=== PATIENT | female | born 1965 | race Two or more races ===

== ENCOUNTER 2016-11-25 01:21 | Emergency (ER) | payer OTHER ==
--- NOTE | 2016-11-25 01:48 | PDOC ---
History of Present Illness - General History Source: Patient Exam Limitations: No Limitations - History of Present Illness Initial Comments: 11/25/16 01:56 The patient is a 51 year old female with significant past medical history of jung parkinson syndrome and hyperlipidemia who presents to the ED with 3 days of generalized malaise and sore throat. Patient describes her sore throat as a burning sensation and states she has difficulty swallowing. She also has complaints of sinus pressure. Patient took a cough and cold remedy with no improvement. The patient denies fever, chills, cough, SOB, chest pain, and palpitations. The patient denies abdominal pain, nausea, vomiting, and diarrhea. Allergies: amoxicillin trihydrate, cephalexin monohydrate, codeine, doxycycline calcium, doxycycline hyclate, doxycycline monohydrate, meloxicam, morphine, moxifloxacin HCl, potassium clavulanate, tinidazole Social History: No alcohol, tobacco, or drug use reported. Past Surgical History: cardiac ablation PCP: Dr. Marylu Galvez <Elena Lester - Last Filed: 11/25/16 04:26> - General History Source: Patient <Rayray Boswell - Last Filed: 11/25/16 04:31> - General Chief Complaint: Sore Throat Stated Complaint: DIFFICULTY SWALLOWING Time Seen by Provider: 11/25/16 01:44 Past History <Elena Lester - Last Filed: 11/25/16 04:26> - Past Medical History Anemia: Yes Cardiac Disorders: Yes (QUINONES PARKINSON SYNDROME) GI Disorders: Yes (REFLUX) Hypercholesterolemia: Yes Suicide Attempt (Hx): No - Surgical History Cardiac Surgery: Yes (ABLATION) - Immunization History Immunization Up to Date: Yes - Psycho/Social/Smoking Cessation Hx Anxiety: No Suicidal Ideation: No Smoking Status: No Smoking History: Never smoked Have you smoked in the past 12 months: No Number of Cigarettes Smoked Daily: 0 If you are a former smoker, when did you quit?: 30YRS AGO Hx Alcohol Use: No Drug/Substance Use Hx: No Substance Use Type: None Hx Substance Use Treatment: No <Rayray Boswell - Last Filed: 11/25/16 04:31> - Past Medical History Allergies/Adverse Reactions: Allergies Allergy/AdvReac Type Severity Reaction Status Date / Time amoxicillin trihydrate Allergy blisters Verified 11/25/16 01:47 [From Augmentin] cephalexin monohydrate Allergy Rash Verified 11/25/16 01:47 [From Keflex] codeine [Codeine] Allergy Itching Verified 11/25/16 01:47 doxycycline calcium Allergy Rash Verified 11/25/16 01:47 [From Vibramycin] doxycycline hyclate Allergy Rash Verified 11/25/16 01:47 [From Vibramycin] doxycycline monohydrate Allergy Rash Verified 11/25/16 01:47 [From Vibramycin] meloxicam Allergy blisters Verified 11/25/16 01:47 morphine Allergy blisters Verified 11/25/16 01:47 moxifloxacin HCl Allergy Rash Verified 11/25/16 01:47 [From Avelox] potassium clavulanate Allergy blisters Verified 11/25/16 01:47 [From Augmentin] tinidazole [From Tindamax] Allergy Rash Verified 11/25/16 01:47 Home Medications: Ambulatory Orders Alprazolam [Xanax] 0.5 mg PO PRN tablet 07/25/13 Codeine/Butalbit/Acetamin/Caff [Fioricet-Cod 84-62-270-40 Cap] 1 each PO PRN capsule 07/25/13 Ezetimibe [Zetia] 10 mg PO DAILY tablet 07/25/13 Metoprolol "Xl" (Sustain Act) [Toprol Xl] 25 mg PO DAILY 07/25/13 Metoprolol "Xl" (Sustain Act) [Toprol Xl] 50 mg PO DAILY 07/25/13 Ranitidine HCl [Zantac 75] 150 mg PO BID tablet 07/25/13 Relifen 500 mg PO BID 07/25/13 Simvastatin [Zocor] 40 mg PO DAILY tablet 07/25/13 Zolpidem Tartrate [Ambien] 10 mg PO HS tablet 07/25/13 Acetaminophen/Caffeine/Butalb [Fioricet -] 0.5 tab PO DAILY PRN 11/21/14 Baclofen 20 mg PO BID 11/21/14 Ezetimibe [Zetia] 10 mg PO HS 11/21/14 Gabapentin [Neurontin] 800 mg PO Q8H 11/21/14 Metoprolol Succinate [Toprol Xl] 75 mg PO DAILY 11/21/14 Modafinil [Provigil] 200 mg PO DAILY 11/21/14 Pentosan Polysulfate Sodium [Elmiron] 200 mg PO BID 11/21/14 Ranitidine HCl [Zantac] 150 mg PO BID 11/21/14 Simvastatin [Zocor -] 40 mg PO HS 11/21/14 Zolpidem Tartrate [Ambien] 10 mg PO HS PRN 11/21/14 Pantoprazole Sodium [Protonix -] 20 mg PO DAILY 02/26/15 Teriflunomide [Aubagio] 7 mg PO DAILY tablet 02/26/15 Diclofenac Sodium [Voltaren] 50 mg PO PRN PRN 03/13/15 Oxycodone HCl/Acetaminophen [Percocet 5-325 mg Tablet] 1 - 2 tab PO Q6H #20 tablet MDD 4 01/29/16 Review of Systems - Review of Systems Able to Perform ROS?: Yes Comments:: 11/25/16 01:56 CONSTITUTIONAL: +generalized malaise Absent: fever, no chills, no fatigue EYES: Absent: visual changes ENT: +sore throat, difficulty swallowing, sinus pressure Absent: ear pain CARDIOVASCULAR: Absent: chest pain, no palpitations RESPIRATORY: Absent: cough, no SOB GI: Absent: abdominal pain, no nausea, no vomiting, no constipation, no diarrhea GENITOURINARY: Absent: dysuria, no frequency, no hematuria MUSKULOSKELETAL: Absent: back pain, no arthralgia, no myalgia SKIN: Absent: rash NEURO: Absent: headache <Elena Lester - Last Filed: 11/25/16 04:26> *Physical Exam - Vital Signs Last Vital Signs Temp Pulse Resp BP Pulse Ox 98.4 F 78 18 98/67 99 11/25/16 01:47 11/25/16 01:47 11/25/16 01:47 11/25/16 01:47 11/25/16 01:47 - Physical Exam Comments: 11/25/16 01:57 GENERAL: Well-appearing, well-nourished. Mild distress. HEENT: Normocephalic, atraumatic. PERRL, EOM intact. CARDIOVASCULAR: Normal S1, S2. Regular rate and rhythm. PULMONARY: Clear to auscultation bilaterally. ABDOMEN: Soft, non-distended, non-tender. EXTREMITIES: Normal ROM in all four extremities. No gross deformities. SKIN: Warm, dry. No rash NEUROLOGICAL: No focal neurological deficits. <Elena Lester - Last Filed: 11/25/16 04:26> ED Treatment Course - LABORATORY CBC & Chemistry Diagram: 11/25/16 01:57 11/25/16 01:57 - RADIOLOGY Radiograph Interpretation: 11/25/16 04:27 EXAM: X-ray AP and lateral view of the neck Reviewed by Imaging instrumentation tech: FINDINGS: The cervical airways patent. Prevertebral soft tissues are normal. Cervical airways patent. Epiglottis is normal. No acute abnormalities. <Elena Lester - Last Filed: 11/25/16 04:26> - LABORATORY CBC & Chemistry Diagram: 11/25/16 01:57 11/25/16 01:57 <Rayray Boswell - Last Filed: 11/25/16 04:31> Medical Decision Making - Medical Decision Making 11/25/16 04:28 Dr. Boswell: The scribe's documentation has been prepared under my direction and personally reviewed by me in its entirery. I confirm that the note above accurately reflects all work, treatment, procedures, and medical decision making performed by me. 11/25/16 04:29 All studies return to be stable. Pt will follow up with ENT as soon as possible. Pt give single dose of Prednisone 40mg. Advised to return if any problems <Rayray Boswell - Last Filed: 11/25/16 04:31> *DC/Admit/Observation/Transfer - Attestations Scribe Attestion: 11/25/16 01:57 Documentation prepared by Elena Lester, acting as medical associate for Rayray Boswell MD <Elena Lester - Last Filed: 11/25/16 04:26> - Discharge Dispostion Admit: No <Rayray Boswell - Last Filed: 11/25/16 04:31> Diagnosis at time of Disposition: Sore throat - Discharge Dispostion Disposition: HOME Condition at time of disposition: Stable - Referrals Referrals: Marylu Galvez MD [Primary Care Provider] - Donald Noel MD [Staff Physician] - - Patient Instructions Printed Discharge Instructions: Sore Throat Additional Instructions: Please follow up with ENT later on today. Retun if any problems
[2016-11-25 01:49] VITALS: BP 98/67; PULSE 78; TEMP 98.4; BMI 20.2
[2016-11-25 02:05] LABS: MCH 26.3 pg (25.7-33.7); MCHC 31.9 g/dl (32.0-36.0); MEAN CELL VOLUME 82.3 fl (80-96); MEAN PLT VOLUME 10.2 fl (7.5-11.1); PLATELET COUNT 204 K/MM3 (134-434); RDW 13.6 % (11.6-15.6); WHITE BLOOD COUNT 4.2 K/mm3 (4.0-10.0)
[2016-11-25 03:15] LABS: ANISOCYTOSIS 1+; PLATELET COMMENT2 NO CLOTTING DETECTED; PLATELET ESTIMATE ADEQUATE (NORMAL)
[2016-11-25 03:38] LABS: CALCIUM 9.1 mg/dL (8.5-10.1); CREATININE 0.5 mg/dL (0.55-1.02)
[2016-11-25] MEDS ORDERED: LIDOCAINE VISCOUS 2% ORAL/TOP 20 ML UNIT-DOSE CUP MM ONE (03:42)
[2016-11-25] MEDS ORDERED: predniSONE 20 MG TABLET (UD) PO ONE (04:27)
[2016-11-25] MEDS ORDERED: predniSONE 20 MG TABLET (UD) ONE (04:30)
== END 2016-11-25 04:44 | disposition home or self-care (01) ==
LOC: JER 01:21
DX: J02.9 Acute pharyngitis, unspecified (principal); E78.00 Pure hypercholesterolemia, unspecified; D64.9 Anemia, unspecified; I45.6 Pre-excitation syndrome
CPT/HCPCS: 36415; 70360-TC; 80048; 85025; 87804; 99281-25

== ENCOUNTER 2017-05-22 00:26 | Emergency (ER) | payer OTHER ==
[2017-05-22 00:35] VITALS: BP 130/87; PULSE 76; TEMP 98.1; BMI 20.4
--- NOTE | 2017-05-22 03:01 | PDOC ---
History of Present Illness - General Chief Complaint: Rash Stated Complaint: PCP SENT - SHINGLES Time Seen by Provider: 05/22/17 02:48 History Source: Patient Exam Limitations: No Limitations - History of Present Illness Initial Comments: 05/22/17 02:57 52yo Female patient w/ PmHx: MS, WPW, HTN, HLD, Anemia, Partial Hysterectomy presents to ED c/o rash on neck. Patient states recently diagnosed with shingles. She called her PCP and was Rx: Valtrex. Patient reports taking medication for 5 days, then rash on neck presented. Associated h/a and flu-like symptoms. She denies any other complaints at this time. Timing/Duration: reports: week Severity: Yes: moderate Location: reports: other (Neck) Respiratory Risk Factors: denies: no cause identified, exposure to illness, exposure to allergen, foods, insect bite, insect sting, medications, pollen, soaps, other Modifying Factors: worse with: antihistamine, calamine lotion, prednisone, scratching, topical steriods, other Associated Symptoms: denies: denies symptoms, blisters, change in skin texture, edema, fever, flushing, headache, hives, jaundice, malaise, nasal congestion, numbness, pallor, paresthesia, petechiae, rash, sore throat, swelling/mass/lumps , tingling, other Past History - Travel Traveled outside of the country in the last 30 days: No Close contact w/someone who was outside of country & ill: No - Past Medical History Allergies/Adverse Reactions: Allergies Allergy/AdvReac Type Severity Reaction Status Date / Time amoxicillin trihydrate Allergy blisters Verified 05/22/17 00:35 [From Augmentin] cephalexin monohydrate Allergy Rash Verified 05/22/17 00:35 [From Keflex] codeine [Codeine] Allergy Itching Verified 05/22/17 00:35 doxycycline calcium Allergy Rash Verified 05/22/17 00:35 [From Vibramycin] doxycycline hyclate Allergy Rash Verified 05/22/17 00:35 [From Vibramycin] doxycycline monohydrate Allergy Rash Verified 05/22/17 00:35 [From Vibramycin] meloxicam Allergy blisters Verified 05/22/17 00:35 morphine Allergy blisters Verified 05/22/17 00:35 moxifloxacin HCl Allergy Rash Verified 05/22/17 00:35 [From Avelox] potassium clavulanate Allergy blisters Verified 05/22/17 00:35 [From Augmentin] tinidazole [From Tindamax] Allergy Rash Verified 11/25/16 01:47 Home Medications: Ambulatory Orders Alprazolam [Xanax] 0.5 mg PO PRN tablet 07/25/13 Codeine/Butalbit/Acetamin/Caff [Fioricet-Cod 51-25-228-40 Cap] 1 each PO PRN capsule 07/25/13 Ezetimibe [Zetia] 10 mg PO DAILY tablet 07/25/13 Metoprolol "Xl" (Sustain Act) [Toprol Xl] 25 mg PO DAILY 07/25/13 Metoprolol "Xl" (Sustain Act) [Toprol Xl] 50 mg PO DAILY 07/25/13 Ranitidine HCl [Zantac 75] 150 mg PO BID tablet 07/25/13 Relifen 500 mg PO BID 07/25/13 Simvastatin [Zocor] 40 mg PO DAILY tablet 07/25/13 Zolpidem Tartrate [Ambien] 10 mg PO HS tablet 07/25/13 Acetaminophen/Caffeine/Butalb [Fioricet -] 0.5 tab PO DAILY PRN 11/21/14 Baclofen 20 mg PO BID 11/21/14 Ezetimibe [Zetia] 10 mg PO HS 11/21/14 Gabapentin [Neurontin] 800 mg PO Q8H 11/21/14 Metoprolol Succinate [Toprol Xl] 75 mg PO DAILY 11/21/14 Modafinil [Provigil] 200 mg PO DAILY 11/21/14 Pentosan Polysulfate Sodium [Elmiron] 200 mg PO BID 11/21/14 Ranitidine HCl [Zantac] 150 mg PO BID 11/21/14 Simvastatin [Zocor -] 40 mg PO HS 11/21/14 Zolpidem Tartrate [Ambien] 10 mg PO HS PRN 11/21/14 Pantoprazole Sodium [Protonix -] 20 mg PO DAILY 02/26/15 Teriflunomide [Aubagio] 7 mg PO DAILY tablet 02/26/15 Diclofenac Sodium [Voltaren] 50 mg PO PRN PRN 03/13/15 Oxycodone HCl/Acetaminophen [Percocet 5-325 mg Tablet] 1 - 2 tab PO Q6H #20 tablet MDD 4 01/29/16 Clarithromycin [Biaxin -] 500 mg PO BID #28 tablet 05/22/17 Mupirocin Ointment [Bactroban 2% Ointment -] 1 applic TP BID PRN #1 tube Anemia: Yes Cardiac Disorders: Yes (QUINONES PARKINSON SYNDROME) GI Disorders: Yes (REFLUX) HTN: Yes Hypercholesterolemia: Yes Suicide Attempt (Hx): No Other medical history: MS - Surgical History Cardiac Surgery: Yes (ABLATION) - Immunization History Immunization Up to Date: Yes - Psycho/Social/Smoking Cessation Hx Anxiety: No Suicidal Ideation: No Smoking Status: No Smoking History: Never smoked Have you smoked in the past 12 months: No Number of Cigarettes Smoked Daily: 0 If you are a former smoker, when did you quit?: 30YRS AGO Hx Alcohol Use: No Drug/Substance Use Hx: No Substance Use Type: None Hx Substance Use Treatment: No Review of Systems - Review of Systems Able to Perform ROS?: Yes Is the patient limited Yi proficient: No Integumentary: Yes: Rash All Other Systems: Reviewed and Negative *Physical Exam - Vital Signs Last Vital Signs Temp Pulse Resp BP Pulse Ox 98.1 F 76 18 130/87 100 05/22/17 00:32 05/22/17 00:32 05/22/17 00:32 05/22/17 00:05/22/17 00:32 - Physical Exam General Appearance: Yes: Nourished, Appropriately Dressed. No: Apparent Distress, Mild Distress, Moderate Distress, Severe Distress HEENT: positive: EOMI, ZARINA, Normal ENT Inspection, Normal Voice, Symmetrical, TMs Normal, Pharynx Normal. negative: Pharyngeal Erythema, Tonsillar Exudate, Tonsillar Erythema, Nasal Congestion, Sinus Tenderness, TM Bulging, TM Dull, TM Erythema Neck: positive: Trachea midline, Supple. negative: Stridor, Lymphadenopathy (R) , Lymphadenopathy (L), Rigidity Respiratory/Chest: positive: Lungs Clear, Normal Breath Sounds. negative: Chest Tender, Respiratory Distress, Accessory Muscle Use, Labored Respiration, Rapid RR Cardiovascular: positive: Regular Rhythm, Regular Rate Musculoskeletal: positive: Normal Inspection. negative: CVA Tenderness Extremity: positive: Normal Capillary Refill, Normal Inspection, Normal Range of Motion. negative: Pedal Edema, Swelling, Calf Tenderness, Erythema, Inflammation Integumentary: positive: Normal Color, Dry, Warm, Rash (Erythematous papular rash to patient right neck (Pimple-like). No drainage, discharge noted. 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 Clarithromycin [Biaxin -] 500 mg PO BID #28 tablet - Patient Instructions Printed Discharge Instructions: DI for Rash Additional Instructions: Take medications as prescribed. Return if symptoms worsen or any concerns for further evaluation. Follow up with your primary care provider next week. Print Language: OCCITAN
[2017-05-22] MEDS ORDERED: CLARITHROMYCIN 500 MG TABLET (UD) PO ONE (03:07)
== END 2017-05-22 03:39 | disposition home or self-care (01) ==
LOC: JER 00:26
DX: R21 Rash and other nonspecific skin eruption (principal); I10 Essential (primary) hypertension; E78.00 Pure hypercholesterolemia, unspecified; I45.6 Pre-excitation syndrome; K21.9 Gastro-esophageal reflux disease without esophagitis; G35 Multiple sclerosis
CPT/HCPCS: 99281-25

== ENCOUNTER 2019-10-05 11:06 | Emergency (ER) | payer OTHER ==
[2019-10-05 11:20] VITALS: BP 136/78; PULSE 83; TEMP 97.8; BMI 19.3
[2019-10-05] MEDS ORDERED: KETOROLAC TROMETHAMINE 30 MG/1 ML VIAL IM ONE (11:42)
[2019-10-05] MEDS ORDERED: METHOCARBAMOL 500 MG TABLET PO ONE (11:42)
[2019-10-05] MEDS ORDERED: KETOROLAC TROMETHAMINE 30 MG/1 ML VIAL ONE (11:43)
[2019-10-05] MEDS ORDERED: METHOCARBAMOL 500 MG TABLET ONE (11:48)
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
== END 2019-10-05 12:23 | disposition home or self-care (01) ==
LOC: JERFT 11:06
PROC: 3E0233Z Introduction of Anti-inflammatory into Muscle, Percutaneous Approach (ICD-10-PCS; principal; 2019-10-05)
DX: S13.4XXA Sprain of ligaments of cervical spine, initial encounter (principal); V43.52XA Car driver injured in collision with other type car in traffic accident, initial encounter; Y92.414 Local residential or business street as the place of occurrence of the external cause; Y93.89 Activity, other specified; Y99.8 Other external cause status
CPT/HCPCS: 99281-25

== ENCOUNTER 2020-08-28 18:42 | Emergency (ER) | payer OTHER ==
[2020-08-28 18:55] VITALS: BP 143/84; PULSE 84; TEMP 98.4; BMI 19.3
[2020-08-28] MEDS ORDERED: ACETAMINOPHEN 500 MG TABLET (FP) PO ONE (19:12)
[2020-08-28] MEDS ORDERED: KETOROLAC TROMETHAMINE 60 MG/2 ML VIAL IM ONE (19:19)
[2020-08-28] MEDS ORDERED: KETOROLAC TROMETHAMINE 60 MG/2 ML VIAL ONE (19:29)
== END 2020-08-28 20:02 | disposition home or self-care (01) ==
LOC: JERFT 18:42
PROC: 2W3CX1Z Immobilization of Right Lower Arm using Splint (ICD-10-PCS; principal; 2020-08-28)
PROC: 3E0233Z Introduction of Anti-inflammatory into Muscle, Percutaneous Approach (ICD-10-PCS; 2020-08-28)
DX: S62.101A Fracture of unspecified carpal bone, right wrist, initial encounter for closed fracture (principal)
CPT/HCPCS: 73110-TC-RT-FY; 73130-TC-RT-FY; 99284-25

== ENCOUNTER 2021-01-27 04:30 | Day surgery (SDC) | payer OTHER ==
[2021-01-23 11:01] VITALS: BMI 19.4
[2021-01-27] MEDS ORDERED: LIDOCAINE HCL 1%, 10 MG/ML (20ML VIAL) ONE (11:00)
[2021-01-27] MEDS ORDERED: MIDAZOLAM HCL 2 MG/2 ML SINGLE DOSE VIAL ONE (12:28)
[2021-01-27] MEDS ORDERED: PROPOFOL 20 ML ONE ×2 (12:54)
[2021-01-27] MEDS ORDERED: LIDOCAINE HCL/PF 2% SDV 5ML VIAL ONE (12:55)
[2021-01-27] MEDS ORDERED: ceFAZolin SODIUM 1 GM VIAL IVPB ONE (13:05)
[2021-01-27] MEDS ORDERED: LIDOCAINE HCL 1%, 10 MG/ML (20ML VIAL) NR ONE (13:18)
[2021-01-27] MEDS ORDERED: BUPIVACAINE HCL/PF 0.5% (5MG/ML) 10 ML VIAL NR ONE (13:18)
[2021-01-27] MEDS ORDERED: EPHEDRINE SULFATE/0.9% NACL/PF 50 MG/10 ML SYRINGE NR ONE (13:24)
[2021-01-27] MEDS ORDERED: KETOROLAC TROMETHAMINE 30 MG/1 ML VIAL ONE (14:13)
[2021-01-27] MEDS ORDERED: oxyCODONE HCL 5 MG TABLET PO PRN (15:06)
[2021-01-27] MEDS ORDERED: ONDANSETRON 4 MG/2 ML VIAL IVPUSH PRN (15:06)
[2021-01-27] MEDS ORDERED: LACTATED RINGERS SOLUTION 1,000 ML IV SCH (15:15)
[2021-01-27 16:00] VITALS: BP 144/78; PULSE 82; TEMP 97.2
== END 2021-01-27 16:15 | disposition home or self-care (01) ==
LOC: JASU-SURG 04:30
PROVIDERS: ATTEND Orthopaedic Surgery
PROC: 0LQ70ZZ Repair Right Hand Tendon, Open Approach (ICD-10-PCS; principal; 2021-01-27 12:15)
DX: S66.211A Strain of extensor muscle, fascia and tendon of right thumb at wrist and hand level, initial encounter (principal); X58.XXXA Exposure to other specified factors, initial encounter; Y93.9 Activity, unspecified; Y92.9 Unspecified place or not applicable; Y99.9 Unspecified external cause status; Z87.81 Personal history of (healed) traumatic fracture
CPT/HCPCS: 94760

== ENCOUNTER 2021-12-07 14:05 | Inpatient (IN) | payer OTHER ==
[2021-12-07] MEDS ORDERED: ACETAMINOPHEN 500 MG TABLET (FP) PO ONE (15:35)
[2021-12-07] MEDS ORDERED: ACETAMINOPHEN 325 MG TABLET (FP) ONE (15:40)
[2021-12-07 15:47] LABS: BASO % 0.9 % (0-2.0); EOS % 0.6 % (0-4.5); HEMATOCRIT 34.8 % (32.4-45.2); HEMOGLOBIN 11.3 GM/dL (10.7-15.3); LYMPH % 40.9 % (8-40); MCH 26.6 pg (25.7-33.7); MCHC 32.4 g/dl (32.0-36.0); MEAN CELL VOLUME 82.2 fl (80-96); MONO % 11.6 % (3.8-10.2); PLATELET COUNT 234 10^3/uL (134-434); RBC 4.24 M/mm3 (3.60-5.2); RDW 14.3 % (11.6-15.6)
[2021-12-07 16:10] LABS: ALBUMIN 4.4 g/dl (3.4-5.0); BLOOD UREA NITROGEN 7.1 mg/dL (7-18); CALCIUM 9.5 mg/dL (8.5-10.1)
[2021-12-07 16:12] LABS: CREATININE 0.5 mg/dL (0.55-1.3)
[2021-12-07 16:15] LABS: BILIRUBIN,TOTAL 0.3 mg/dL (0.2-1); TOT PROT 7.7 g/dl (6.4-8.2)
[2021-12-07 16:16] LABS: MAGNESIUM 2.2 mg/dL (1.8-2.4)
[2021-12-07 16:20] LABS: PH,URINE 6.5 (5.0-8.0); URINE APPEARANCE CLEAR; URINE BILIRUBIN NEGATIVE (NEGATIVE); URINE COLOR YELLOW; URINE GLUCOSE (UA) NEGATIVE (NEGATIVE); URINE KETONE NEGATIVE (NEGATIVE); URINE LEUK ESTERASE NEGATIVE (NEGATIVE); URINE NITRITE NEGATIVE (NEGATIVE); URINE PROTEIN NEGATIVE (NEGATIVE); URINE UROBILINOGEN 0.2 mg/dL (0.2-1.0)
[2021-12-07] MEDS ORDERED: ASPIRIN 81 MG CHEWABLE TABLETS PO ONE (18:57)
[2021-12-07] MEDS ORDERED: ASPIRIN 81 MG CHEWABLE TABLETS ONE (19:17)
[2021-12-07] MEDS ORDERED: POLYETHYLENE GLYCOL (HEALTHYLAX) 3350 17 GM PACKET PO PRN (20:54)
[2021-12-07] MEDS ORDERED: ACETAMINOPHEN 325 MG TABLET (FP) PO PRN (20:54)
[2021-12-07] MEDS ORDERED: ACETAMINOPHEN 1000 MG/100 ML BAG IVPB ONE (23:00)
[2021-12-08 03:23] VITALS: BMI 19.8
[2021-12-08] MEDS ORDERED: CELECOXIB 100 MG CAPSULE PO PRN (03:49)
[2021-12-08] MEDS ORDERED: KETOROLAC TROMETHAMINE 15 MG/ML VIAL IVPUSH ONE (04:02)
[2021-12-08] MEDS ORDERED: BACLOFEN 10 MG TABLET (FP) PO PRN (04:17)
[2021-12-08] MEDS ORDERED: LORazepam 2 MG/ML SDV VIAL IVPUSH PRN (07:00)
[2021-12-08 07:32] LABS: BASO % 1.4 % (0-2.0); EOS % 1.7 % (0-4.5); HEMATOCRIT 35.4 % (32.4-45.2); HEMOGLOBIN 11.3 GM/dL (10.7-15.3); LYMPH % 50.3 % (8-40); MCH 26.2 pg (25.7-33.7); MEAN CELL VOLUME 81.8 fl (80-96); MEAN PLT VOLUME 10.6 fl (7.5-11.1); MONO % 13.1 % (3.8-10.2); NEUT % 33.5 % (42.8-82.8); PLATELET COUNT 216 10^3/uL (134-434); RBC 4.33 M/mm3 (3.60-5.2); WHITE BLOOD COUNT 2.4 K/mm3 (4.0-10.0)
[2021-12-08 07:38] LABS: INR 1.02 (0.83-1.09); PROTHROMBIN TIME (PATIENT) 11.7 SEC (9.7-13.0)
[2021-12-08 07:47] LABS: BLOOD UREA NITROGEN 8.7 mg/dL (7-18); CALCIUM 8.7 mg/dL (8.5-10.1)
[2021-12-08 07:52] LABS: CREATININE 0.5 mg/dL (0.55-1.3)
[2021-12-08] MEDS ORDERED: metoPROLOL SUCCINATE 25 MG TAB.SR.24H (FP) ONE (09:35)
[2021-12-08] MEDS: ZINC SULFATE 220 MG CAPSULE (FP) PO SCH (09:36)
[2021-12-08] MEDS: METOPROLOL SUCCINATE 50 MG, METOPROLOL SUCCINATE 25 MG PO SCH (09:36)
[2021-12-08] MEDS: CHOLECALCIFEROL (VIT D3) 400 UNIT (10 MCG) TABLET PO SCH (09:36)
[2021-12-08] MEDS: ASCORBIC ACID 500 MG TABLET (FP) PO SCH (09:36)
[2021-12-08] MEDS: ENOXAPARIN NA (PORCINE) 40 MG/0.4 ML DISP.SYRIN SQ SCH (09:36)
[2021-12-08] MEDS ORDERED: CELECOXIB 100 MG CAPSULE PO SCH (10:00)
[2021-12-08] MEDS: FLUTICASONE PROP 0.05% 16 GM NASAL SPRAY NS SCH (11:25)
[2021-12-08] MEDS ORDERED: LORazepam 2 MG/ML SDV VIAL IVPUSH ONE (16:15)
[2021-12-08] MEDS: TOLTERODINE TARTRATE LA 4 MG CAP.SR.24H (FP) PO SCH (22:22)
[2021-12-08] MEDS: MELATONIN 5 MG TABLETS PO SCH (22:23)
[2021-12-08] MEDS: ATORVASTATIN CA 20 MG TABLET (FP) PO SCH (22:23)
[2021-12-08] MEDS: Mirabegron [Myrbetriq] 50 MG Tab.Er.24h PO SCH (22:23)
[2021-12-09] MEDS: TERIFLUNOMIDE 14 MG PO SCH (10:00)
[2021-12-09] MEDS ORDERED: metoPROLOL SUCCINATE 25 MG TAB.SR.24H (FP) ONE (11:00)
[2021-12-09] MEDS: CHOLECALCIFEROL (VIT D3) 400 UNIT (10 MCG) TABLET PO SCH (11:03)
[2021-12-09] MEDS: METOPROLOL SUCCINATE 50 MG, METOPROLOL SUCCINATE 25 MG PO SCH (11:03)
[2021-12-09] MEDS: ASCORBIC ACID 500 MG TABLET (FP) PO SCH (11:03)
[2021-12-09] MEDS: ENOXAPARIN NA (PORCINE) 40 MG/0.4 ML DISP.SYRIN SQ SCH (11:04)
[2021-12-09] MEDS: ZINC SULFATE 220 MG CAPSULE (FP) PO SCH (11:04)
[2021-12-09] MEDS: FLUTICASONE PROP 0.05% 16 GM NASAL SPRAY NS SCH (11:04)
[2021-12-09] MEDS: DEXAMETHASONE SOD PHOSPHATE 10 MG/1 ML VIAL IM SCH ×2 (16:00→21:47)
[2021-12-09] MEDS: ACETAMINOPHEN/CAFFEINE/BUTALBITAL 1 TAB PO PRN (21:17)
[2021-12-09] MEDS: ATORVASTATIN CA 20 MG TABLET (FP) PO SCH (21:17)
[2021-12-09] MEDS: TOLTERODINE TARTRATE LA 4 MG CAP.SR.24H (FP) PO SCH (21:18)
[2021-12-09] MEDS: MELATONIN 5 MG TABLETS PO SCH (21:19)
[2021-12-09] MEDS: Mirabegron [Myrbetriq] 50 MG Tab.Er.24h PO SCH (21:48)
[2021-12-10] MEDS: DEXAMETHASONE SOD PHOSPHATE 10 MG/1 ML VIAL IM SCH ×4 (03:51→22:20)
[2021-12-10] MEDS ORDERED: metoPROLOL SUCCINATE 25 MG TAB.SR.24H (FP) ONE (09:26)
[2021-12-10] MEDS: ZINC SULFATE 220 MG CAPSULE (FP) PO SCH (09:43)
[2021-12-10] MEDS: CHOLECALCIFEROL (VIT D3) 400 UNIT (10 MCG) TABLET PO SCH (09:43)
[2021-12-10] MEDS: METOPROLOL SUCCINATE 50 MG, METOPROLOL SUCCINATE 25 MG PO SCH (09:43)
[2021-12-10] MEDS: ASCORBIC ACID 500 MG TABLET (FP) PO SCH (09:43)
[2021-12-10] MEDS: ENOXAPARIN NA (PORCINE) 40 MG/0.4 ML DISP.SYRIN SQ SCH (09:44)
[2021-12-10] MEDS: FLUTICASONE PROP 0.05% 16 GM NASAL SPRAY NS SCH (09:44)
[2021-12-10] MEDS: TERIFLUNOMIDE 14 MG PO SCH (10:00)
[2021-12-10] MEDS ORDERED: FAMOTIDINE 20 MG TABLET PO SCH (10:00)
[2021-12-10] MEDS: ACETAMINOPHEN/CAFFEINE/BUTALBITAL 1 TAB PO PRN (13:24)
[2021-12-10] MEDS ORDERED: POLYETHYLENE GLYCOL (HEALTHYLAX) 3350 17 GM PACKET PO PRN (20:01)
[2021-12-10] MEDS ORDERED: ACETAMINOPHEN 325 MG TABLET (FP) PO PRN (20:01)
[2021-12-10] MEDS ORDERED: ACETAMINOPHEN/CAFFEINE/BUTALBITAL 1 TAB PO PRN (20:01)
[2021-12-10] MEDS ORDERED: BACLOFEN 10 MG TABLET (FP) PO PRN (20:01)
[2021-12-10] MEDS ORDERED: CELECOXIB 100 MG CAPSULE PO PRN (20:01)
[2021-12-10] MEDS ORDERED: MIRABEGRON PO SCH (22:00)
[2021-12-10] MEDS ORDERED: ATORVASTATIN CA 20 MG TABLET (FP) PO SCH (22:00)
[2021-12-10] MEDS ORDERED: MELATONIN 5 MG TABLETS PO SCH (22:00)
[2021-12-10] MEDS ORDERED: TOLTERODINE TARTRATE LA 4 MG CAP.SR.24H (FP) PO SCH (22:00)
[2021-12-11] MEDS: DEXAMETHASONE SOD PHOSPHATE 10 MG/1 ML VIAL IM SCH (06:25)
[2021-12-11] MEDS ORDERED: DEXAMETHASONE SOD PHOSPHATE 10 MG/1 ML VIAL IVPUSH SCH (09:00)
[2021-12-11] MEDS ORDERED: DEXAMETHASONE SOD PHOSPHATE 10 MG/1 ML VIAL IM SCH (09:00)
[2021-12-11] MEDS ORDERED: metoPROLOL SUCCINATE 25 MG TAB.SR.24H (FP) ONE (09:13)
[2021-12-11] MEDS ORDERED: CHOLECALCIFEROL (VIT D3) 400 UNIT (10 MCG) TABLET PO SCH (10:00)
[2021-12-11] MEDS ORDERED: ASCORBIC ACID 500 MG TABLET (FP) PO SCH (10:00)
[2021-12-11] MEDS ORDERED: ZINC SULFATE 220 MG CAPSULE (FP) PO SCH (10:00)
[2021-12-11] MEDS ORDERED: METOPROLOL SUCCINATE 50 MG, METOPROLOL SUCCINATE 25 MG PO SCH (10:00)
[2021-12-11] MEDS ORDERED: ENOXAPARIN NA (PORCINE) 40 MG/0.4 ML DISP.SYRIN SQ SCH (10:00)
[2021-12-11] MEDS ORDERED: TERIFLUNOMIDE PO SCH (10:00)
[2021-12-11] MEDS ORDERED: FLUTICASONE PROP 0.05% 16 GM NASAL SPRAY NS SCH (10:00)
[2021-12-11] MEDS ORDERED: FAMOTIDINE 20 MG TABLET PO SCH (10:00)
[2021-12-11 10:32] VITALS: TEMP 98.6
[2021-12-11 14:53] VITALS: BP 138/77; PULSE 69
== END 2021-12-11 14:53 | disposition home or self-care (01) | DRG 149 ==
LOC: JER 14:05 → JERBED 19:47 → J4W 12-08 02:33 → J6S 12-10 19:26
PROVIDERS: ADMIT Hospitalist; ATTEND Internal Medicine
DX: R42 Dizziness and giddiness (principal); I45.6 Pre-excitation syndrome; G35 Multiple sclerosis; I10 Essential (primary) hypertension; E78.5 Hyperlipidemia, unspecified; K21.9 Gastro-esophageal reflux disease without esophagitis; D64.9 Anemia, unspecified; M79.602 Pain in left arm; M79.601 Pain in right arm; G43.909 Migraine, unspecified, not intractable, without status migrainosus; R00.2 Palpitations; R06.01 Orthopnea; H53.8 Other visual disturbances
CPT/HCPCS: 36415; 70450-TC; 70496-TC; 70498-TC; 70553-TC; 71046-TC-FY; 80048; 80053; 81003; 83735; 84484; 85025; 85610; 85730; 87086; 93005; 93010; 99285-25; A9579; C9803-CS; J1100; U0003; U0005

== ENCOUNTER 2022-04-22 03:58 | Day surgery (SDC) | payer OTHER ==
[2022-04-20 17:54] VITALS: BMI 19.4
[2022-04-22 07:55] VITALS: RESP 16
[2022-04-22] MEDS ORDERED: MIDAZOLAM HCL 2 MG/2 ML SINGLE DOSE VIAL ONE ×2 (09:02→09:14)
[2022-04-22] MEDS ORDERED: LIDOCAINE HCL/PF 2% SDV 5ML VIAL ONE (09:14)
[2022-04-22] MEDS ORDERED: LIDOCAINE HCL 1%, 10 MG/ML (20ML VIAL) ONE (09:14)
[2022-04-22] MEDS ORDERED: BUPIVACAINE HCL/PF 0.5% (5MG/ML) 10 ML VIAL ONE (09:15)
[2022-04-22] MEDS ORDERED: DEXAMETHASONE SOD PHOSPHATE 4 MG/1 ML VIAL ONE (09:55)
[2022-04-22] MEDS ORDERED: ceFAZolin SODIUM 1 GM VIAL ONE (09:55)
[2022-04-22] MEDS ORDERED: ONDANSETRON 4 MG/2 ML VIAL ONE (09:55)
[2022-04-22] MEDS ORDERED: LIDOCAINE HCL 1%, 10 MG/ML (20ML VIAL) ID ONE (09:58)
[2022-04-22] MEDS ORDERED: ceFAZolin SODIUM 1 GM VIAL IVPB ONE (09:58)
[2022-04-22] MEDS ORDERED: BUPIVACAINE HCL/PF 0.5% (5MG/ML) 10 ML VIAL IJ ONE ×2 (10:06)
[2022-04-22] MEDS ORDERED: ONDANSETRON 4 MG/2 ML VIAL IVPUSH PRN (10:25)
[2022-04-22] MEDS ORDERED: LACTATED RINGERS SOLUTION 1,000 ML IV SCH (10:30)
[2022-04-22] MEDS ORDERED: traMADol HCL 50 MG TABLET ONE (10:57)
[2022-04-22] MEDS ORDERED: traMADol HCL 50 MG TABLET PO ONE (11:00)
[2022-04-22 12:44] VITALS: BP 97/57; PULSE 72; TEMP 96.4
== END 2022-04-22 12:43 | disposition home or self-care (01) ==
LOC: JASU-SURG 03:58
PROVIDERS: ATTEND Orthopaedic Surgery
PROC: 0PBM0ZZ Excision of Right Carpal, Open Approach (ICD-10-PCS; 2022-04-22)
PROC: 0JBG0ZZ Excision of Right Lower Arm Subcutaneous Tissue and Fascia, Open Approach (ICD-10-PCS; 2022-04-22)
PROC: 0LB50ZZ Excision of Right Lower Arm and Wrist Tendon, Open Approach (ICD-10-PCS; principal; 2022-04-22 09:00)
DX: M67.431 Ganglion, right wrist (principal); M25.7 Osteophyte
CPT/HCPCS: 88304-TC; 88311-TC

== ENCOUNTER 2022-10-28 17:02 | Emergency (ER) | payer OTHER ==
[2022-10-28 17:12] VITALS: BMI 20.9
[2022-10-28] MEDS ORDERED: SODIUM CHLORIDE 1,000 ML IV STA (17:23)
[2022-10-28] MEDS ORDERED: ACETAMINOPHEN 1000 MG/100 ML BAG IVPB ONE (17:33)
[2022-10-28] MEDS ORDERED: ACETAMINOPHEN INJECTION 100 ML IVPB ONE (18:12)
[2022-10-28 19:10] LABS: BASO % 0.9 % (0-2.0); EOS % 0.2 % (0-4.5); HEMATOCRIT 35.4 % (32.4-45.2); HEMOGLOBIN 11.5 GM/dL (10.7-15.3); LYMPH % 30.5 % (8-40); MCH 27.1 pg (25.7-33.7); MCHC 32.5 g/dl (32.0-36.0); MEAN CELL VOLUME 83.3 fl (80-96); MEAN PLT VOLUME 10.6 fl (7.5-11.1); MONO % 10.3 % (3.8-10.2); NEUT % 58.1 % (42.8-82.8); PLATELET COUNT 304 10^3/uL (134-434); RBC 4.25 M/mm3 (3.60-5.2); RDW 14.7 % (11.6-15.6); WHITE BLOOD COUNT 4.1 K/mm3 (4.0-10.0)
[2022-10-28 19:16] LABS: CHLORIDE 104 mmol/L (98-107); SODIUM 136 mmol/L (136-145)
[2022-10-28 19:18] LABS: CALCIUM 9.4 mg/dL (8.5-10.1)
[2022-10-28 19:19] LABS: ALBUMIN 4.1 g/dl (3.4-5.0); BLOOD UREA NITROGEN 11.2 mg/dL (7-18); CO2 24 mmol/L (21-32); GLUCOSE,RANDOM 82 mg/dL (74-106); LIPASE 103 U/L (73-393)
[2022-10-28 19:20] LABS: AMYLASE 84 U/L (25-115)
[2022-10-28 19:22] LABS: CREATININE 0.6 mg/dL (0.55-1.3); SGOT/AST 87 U/L (15-37)
[2022-10-28 19:24] LABS: BILIRUBIN,TOTAL 0.2 mg/dL (0.2-1)
[2022-10-28 19:25] LABS: ALK PHOS 49 U/L (45-117)
[2022-10-28 19:26] LABS: ANION GAP 8 MMOL/L (8-16); SGPT/ALT 43 U/L (13-61)
[2022-10-28] MEDS ORDERED: ONDANSETRON 4 MG/2 ML VIAL IVPUSH ONE (19:31)
[2022-10-28] MEDS ORDERED: ONDANSETRON 4 MG/2 ML VIAL ONE (19:51)
[2022-10-28 20:28] LABS: URINE APPEARANCE CLEAR; URINE BILIRUBIN NEGATIVE (NEGATIVE); URINE COLOR YELLOW; URINE GLUCOSE (UA) NEGATIVE (NEGATIVE); URINE KETONE NEGATIVE (NEGATIVE); URINE LEUK ESTERASE NEGATIVE (NEGATIVE); URINE NITRITE NEGATIVE (NEGATIVE); URINE PROTEIN NEGATIVE (NEGATIVE); URINE UROBILINOGEN 0.2 mg/dL (0.2-1.0)
[2022-10-29] MEDS ORDERED: traMADol HCL 50 MG TABLET PO ONE (01:26)
[2022-10-29] MEDS ORDERED: traMADol HCL 50 MG TABLET ONE (01:37)
[2022-10-29 01:43] VITALS: BP 128/80; PULSE 78; RESP 20; TEMP 98.8
== END 2022-10-29 01:43 | disposition home or self-care (01) ==
LOC: JER 17:02
PROC: 3E0333Z Introduction of Anti-inflammatory into Peripheral Vein, Percutaneous Approach (ICD-10-PCS; principal; 2022-10-28)
PROC: 3E033GC Introduction of Other Therapeutic Substance into Peripheral Vein, Percutaneous Approach (ICD-10-PCS; 2022-10-28)
PROC: 3E0337Z Introduction of Electrolytic and Water Balance Substance into Peripheral Vein, Percutaneous Approach (ICD-10-PCS; 2022-10-28)
DX: K51.90 Ulcerative colitis, unspecified, without complications (principal); R10.31 Right lower quadrant pain
CPT/HCPCS: 36415; 74177-TC; 80053; 81003; 82150; 83690; 84132; 85025; 87077; 87086; 99285-25; Q9967

== ENCOUNTER 2022-12-25 04:26 | Day surgery (SDC) | payer OTHER ==
[2022-12-23 10:46] VITALS: BMI 22.3
[~2022-12-25 04:26] MED LIST: ACETAMINOPHEN 1000 MG/100 ML BAG IVPB ONE
[2022-12-25] MEDS ORDERED: MIDAZOLAM HCL 2 MG/2 ML SINGLE DOSE VIAL ONE (12:36)
[2022-12-25] MEDS ORDERED: HYDROmorphone HCl 2 MG/ML VIAL ONE ×2 (12:36→18:15)
[2022-12-25] MEDS ORDERED: ROCURONIUM BROMIDE 50 MG/5 ML SYRINGE ONE ×2 (12:36→14:44)
[2022-12-25] MEDS ORDERED: PROPOFOL 40 ML ONE (12:36)
[2022-12-25] MEDS ORDERED: ACETAMINOPHEN INJECTION 100 ML IVPB ONE (13:16)
[2022-12-25] MEDS ORDERED: CLINDAMYCIN 600MG PREMIX IVPB 600 MG/50 ML BAG IVPB ONE (13:57)
[2022-12-25] MEDS ORDERED: CLINDAMYCIN 600 MG PREMIX BAG IVPB ONE (13:58)
[2022-12-25] MEDS ORDERED: BUPIVACAINE HCL/PF 0.5% (5MG/ML) 10 ML VIAL IJ ONE ×2 (14:02)
[2022-12-25] MEDS ORDERED: KETAMINE HCL 500 MG/10 ML VIAL ONE (14:39)
[2022-12-25] MEDS ORDERED: ACETAMINOPHEN 1000 MG/100 ML BAG IVPB ONE (14:45)
[2022-12-25] MEDS ORDERED: KETOROLAC TROMETHAMINE 30 MG/1 ML VIAL IVPUSH ONE (17:10)
[2022-12-25] MEDS ORDERED: HYDROmorphone HCl 2 MG/ML VIAL IVPUSH ONE ×4 (18:18→19:40)
[2022-12-25] MEDS: oxyCODONE HCL 5 MG TABLET PO PRN (21:53)
[2022-12-26] MEDS: oxyCODONE HCL 5 MG TABLET PO PRN ×4 (02:01→14:23)
[2022-12-26 05:25] VITALS: RESP 18
[2022-12-26 15:30] VITALS: BP 109/53; PULSE 83; TEMP 98.5
== END 2022-12-26 17:09 | disposition home or self-care (01) ==
LOC: JASUSAT 04:26 → JASU-SURG 04:26 → J8W 21:38 → JASUSAT 12-26 17:09
PROVIDERS: ATTEND Surgery
PROC: 8E0W4CZ Robotic Assisted Procedure of Trunk Region, Percutaneous Endoscopic Approach (ICD-10-PCS; 2022-12-25)
PROC: 0WUF4JZ Supplement Abdominal Wall with Synthetic Substitute, Percutaneous Endoscopic Approach (ICD-10-PCS; principal; 2022-12-25 12:15)
DX: K43.6 Other and unspecified ventral hernia with obstruction, without gangrene (principal)
CPT/HCPCS: 94760; C1781; C9803-CS; U0003; U0005

== ENCOUNTER 2024-01-14 11:55 | Inpatient (IN) | payer OTHER ==
[2024-01-14 12:07] VITALS: BMI 22.8
[2024-01-14 15:20] LABS: BASO % 1.2 % (0-2.0); EOS % 2.2 % (0-4.5); HEMATOCRIT 36.3 % (32.4-45.2); HEMOGLOBIN 11.8 GM/dL (10.7-15.3); MCH 27.3 pg (25.7-33.7); MCHC 32.6 g/dl (32.0-36.0); MEAN CELL VOLUME 83.9 fl (80-96); MEAN PLT VOLUME 9.2 fl (7.5-11.1); MONO % 8.7 % (3.8-10.2); NEUT % 63.9 % (42.8-82.8); PLATELET COUNT 303 10^3/uL (134-434); RBC 4.33 M/mm3 (3.60-5.2); RDW 14.5 % (11.6-15.6); WHITE BLOOD COUNT 4.8 K/mm3 (4.0-10.0)
[2024-01-14 15:21] LABS: URINE APPEARANCE Error; URINE BILIRUBIN NEGATIVE (NEGATIVE); URINE COLOR YELLOW; URINE GLUCOSE (UA) NEGATIVE (NEGATIVE); URINE KETONE NEGATIVE (NEGATIVE); URINE LEUK ESTERASE NEGATIVE (NEGATIVE); URINE NITRITE NEGATIVE (NEGATIVE); URINE PROTEIN NEGATIVE (NEGATIVE); URINE UROBILINOGEN 0.2 mg/dL (0.2-1.0)
[2024-01-14] MEDS ORDERED: ACETAMINOPHEN INJECTION 100 ML IVPB ONE (15:29)
[2024-01-14] MEDS ORDERED: DEXAMETHASONE SOD PHOSPHATE 10 MG/1 ML VIAL ONE (15:29)
[2024-01-14 15:37] LABS: CHLORIDE 107 mmol/L (98-107); POTASSIUM 5.1 mmol/L (3.5-5.1); SODIUM 140 mmol/L (136-145)
[2024-01-14 15:39] LABS: CALCIUM 9.8 mg/dL (8.5-10.1)
[2024-01-14 15:40] LABS: ALBUMIN 3.9 g/dl (3.4-5.0); ANION GAP 5 mmol/L (4-13); BLOOD UREA NITROGEN 8.5 mg/dL (7-18); CO2 28 mmol/L (21-32); GLUCOSE,RANDOM 91 mg/dL (74-106)
[2024-01-14 15:43] LABS: CREATININE 0.5 mg/dL (0.55-1.3); SGOT/AST 36 U/L (15-37); SGPT/ALT 31 U/L (13-61)
[2024-01-14 15:44] LABS: BILIRUBIN,TOTAL 0.3 mg/dL (0.2-1); TOT PROT 7.2 g/dl (6.4-8.2)
[2024-01-14 15:46] LABS: ALK PHOS 60 U/L (45-117)
[2024-01-14] MEDS: DEXAMETHASONE SOD PHOSPHATE 10 MG/1 ML VIAL IVPUSH ONE (16:16)
[2024-01-14] MEDS: ACETAMINOPHEN 1000 MG/100 ML BAG IVPB ONE (16:16)
[2024-01-14] MEDS: SODIUM CHLORIDE 1,000 ML IV STA (16:16)
[2024-01-14] MEDS: HEPARIN NA (PORCINE) 5,000 UNITS/ML 1ML VIAL SQ SCH (21:40)
[2024-01-14] MEDS: DOCUSATE SODIUM 100 MG CAPSULE (FP) PO SCH (21:41)
[2024-01-14] MEDS: ATORVASTATIN CA 40 MG TABLET (FP) PO SCH (21:41)
[2024-01-15 08:33] LABS: BASO % 0.4 % (0-2.0); HEMOGLOBIN 12.6 GM/dL (10.7-15.3); LYMPH % 11.3 % (8-40); MCH 27.4 pg (25.7-33.7); MCHC 32.2 g/dl (32.0-36.0); MEAN CELL VOLUME 85.1 fl (80-96); MEAN PLT VOLUME 10.2 fl (7.5-11.1); MONO % 4.9 % (3.8-10.2); NEUT % 83.4 % (42.8-82.8); PLATELET COUNT 335 10^3/uL (134-434); RBC 4.59 M/mm3 (3.60-5.2); RDW 14.7 % (11.6-15.6); WHITE BLOOD COUNT 7.7 K/mm3 (4.0-10.0)
[2024-01-15 08:46] LABS: POTASSIUM 4.6 mmol/L (3.5-5.1)
[2024-01-15] MEDS: ACETAMINOPHEN/CAFFEINE/BUTALBITAL 1 TAB PO PRN (09:07)
[2024-01-15] MEDS: ZINC SULFATE 220 MG CAPSULE (FP) PO SCH (09:08)
[2024-01-15] MEDS: metoPROLOL SUCCINATE 25 MG TAB.SR.24H (FP) PO SCH (09:08)
[2024-01-15] MEDS: CHOLECALCIFEROL (VIT D3) 400 UNIT (10 MCG) TABLET PO SCH (09:08)
[2024-01-15] MEDS: ASCORBIC ACID 500 MG TABLET (FP) PO SCH (09:08)
[2024-01-15] MEDS: MAGNESIUM OXIDE 400 MG TABLET (FP) PO SCH (09:08)
[2024-01-15 09:13] LABS: ALBUMIN 4.1 g/dl (3.4-5.0); BLOOD UREA NITROGEN 12.1 mg/dL (7-18); CALCIUM 10.1 mg/dL (8.5-10.1)
[2024-01-15 09:16] LABS: CREATININE 0.6 mg/dL (0.55-1.3)
[2024-01-15 09:18] LABS: BILIRUBIN,TOTAL 0.3 mg/dL (0.2-1); TOT PROT 7.9 g/dl (6.4-8.2)
[2024-01-15] MEDS: TOPIRAMATE 25 MG TABLET PO SCH (15:07)
[2024-01-15 15:45] VITALS: RESP 18
[2024-01-15] MEDS: Mirabegron [Myrbetriq] 50 MG Tab.Er.24h PO SCH (21:15)
[2024-01-17] MEDS: ACETAMINOPHEN 1000 MG/100 ML BAG IVPB ONE (06:40)
[2024-01-17] MEDS: VITAMIN E 400 INTERNATIONAL-UNITS CAPSULE (FP) PO SCH (09:14)
[2024-01-18 05:45] VITALS: PULSE 64
[2024-01-18 09:13] VITALS: BP 132/72; TEMP 98.4
== END 2024-01-18 12:52 | disposition home or self-care (01) | DRG 60 ==
LOC: JER 11:55 → JERBED 17:22 → OBSVTOIN 17:57 → J6S 18:18
PROVIDERS: ADMIT Internal Medicine; ATTEND Internal Medicine
DX: G35 Multiple sclerosis (principal); R51.9 Headache, unspecified; I10 Essential (primary) hypertension; E78.5 Hyperlipidemia, unspecified; R26.0 Ataxic gait; R00.2 Palpitations
CPT/HCPCS: 36415; 70450-TC; 70553-TC; 71046-TC-FY; 80053; 80061; 81003; 83036; 84436; 84439; 84443; 84481; 84484; 85025; 85379; 86140; 87086; 93005; 93010; 99285-25; G0378; J0131; J1100; J1644